=== PATIENT | female | born 1980 | race Caucasian/White ===

== ENCOUNTER → 2016-12-17 | Outpatient (CLI) | payer OTHER | LOC: GMAM 17:19 | PROVIDERS: ATTEND Family Medicine | DX: R06.02 Shortness of breath (principal) ==

== ENCOUNTER 2017-03-10 10:21 | Emergency (ER) | payer OTHER ==
[2017-03-10 10:34] VITALS: BP 96/67; TEMP 98.1; O2SAT 96
[2017-03-10] MEDS ORDERED: predniSONE 20 MG TAB PO ONE (11:31)
[2017-03-10] MEDS ORDERED: PSEUDOEPHEDRINE HCL 30 MG TAB PO ONE (11:32)
--- NOTE | 2017-03-10 11:36 | ED.PDOC ---
History of Present Illness - General Chief Complaint: Respiratory Problem Stated Complaint: sore throat Time Seen by Provider: 03/10/17 10:23 Source: patient Exam Limitations: no limitations - History of Present Illness Initial Comments: The patient is a 37-year-old female presenting to the ER secondary to pharyngitis and congestion. Symptoms have been going on for several days. Questionable low-grade fevers. No nausea or vomiting. No difficulty with breathing. She has had exposure to strep throat. Physical exam shows nares that are red. Clear rhinorrhea. Posterior oropharynx shows mildly enlarged tonsillar tissues with some ulceration on the right. No palatal asymmetry. No evidence of abscess formation. Lungs are clear. Timing/Duration: 24 hours Severity: moderate Improving Factors: nothing Worsening Factors: nothing Associated Symptoms: malaise Allergies/Adverse Reactions: Allergies NO KNOWN ALLERGY Allergy (Verified 03/10/17 10:35) Review of Systems - Review of Systems Constitutional: States: malaise EENTM: States: nose congestion, throat pain Respiratory: States: no symptoms reported Cardiology: States: no symptoms reported Gastrointestinal/Abdominal: States: no symptoms reported Genitourinary: States: no symptoms reported Musculoskeletal: States: no symptoms reported Skin: States: no symptoms reported Neurological: States: no symptoms reported Endocrine: States: no symptoms reported All other Systems: No Change from Baseline Past Medical History (General) - Patient Medical History Hx Seizures: No Hx Asthma: No Hx of COPD: No Hx Cardiac Disorders: No Surgical History: appendectomy, other - Female History Patient is a Female of Child Bearing Age (10 -59 yrs old): Yes Family Medical History - Family History Mother Family History: Unknown Physical Exam - Physical Exam General Appearance: Alert, Comfortable, No apparent distress Eye Exam: bilateral normal Ears, Nose, Throat: nasal congestion, pharyngeal erythema Neck: full range of motion, other - mild shotty lymphadenopathy Respiratory: lungs clear, normal breath sounds, no respiratory distress, no accessory muscle use Cardiovascular/Chest: regular rate, rhythm, no edema Back Exam: normal inspection Extremity: normal range of motion, normal inspection Neurologic: alert, normal mood/affect, oriented x 3 Skin Exam: normal color Comments: Vital Signs - 24 hr 03/10/17 03/10/17 10:30 10:42 Temperature 98.1 F Pulse Rate [ 94 H Right] Respiratory 16 16 Rate Blood Pressure 96/67 [right brachial ] O2 Sat by Pulse 96 Oximetry Progress - Progress Progress: 03/10/17 11:37 the patient is a 37-year-old female that appears to have a viral rhinopharyngitis with herpangina. The patient is given one dose of oral prednisone here. She can alternate Motrin and Tylenol to help reduce symptoms. She is contagious. She can use Chloraseptic spray to help reduce sore throat symptoms. She was also given 1 dose of Sudafed here. She can take Zyrtec-D 1 tablet daily for the next 2 or 3 days to help with symptoms as well. Additionally if she wishes, she can sweet pickle maker [id number] Nasacort or Flonase and use 1 spray in each nostril twice daily for the next for 5 days. She does need to keep well-hydrated. ER warnings were given for any significant worsening. Departure - Departure Clinical Impression: Herpangina, Rhinopharyngitis Disposition: Discharge to Home or Self Care Condition: Fair Departure Forms: ED Discharge - Pt. Copy, Patient Portal Self Enrollment Instructions: DI for Viral Upper Respiratory Infection -- Adult Diet: regular diet Activity: increase activity as tolerated Referrals: Jaydon Santos MD [Primary Care Provider] - 1-2 Weeks Additional Instructions: the patient is a 37-year-old female that appears to have a viral rhinopharyngitis with herpangina. The patient is given one dose of oral prednisone here. She can alternate Motrin and Tylenol to help reduce symptoms. She is contagious. She can use Chloraseptic spray to help reduce sore throat symptoms. She was also given 1 dose of Sudafed here. She can take Zyrtec-D 1 tablet daily for the next 2 or 3 days to help with symptoms as well. Additionally if she wishes, she can sweet pickle maker [id number] Nasacort or Flonase and use 1 spray in each nostril twice daily for the next for 5 days. She does need to keep well-hydrated. ER warnings were given for any significant worsening.
[2017-03-10] MEDS ORDERED: IBUPROFEN 200 MG TAB PO ONE (11:39)
== END 2017-03-10 11:48 | disposition home or self-care (01) ==
LOC: ER 10:21
DX: J00 Acute nasopharyngitis [common cold] (principal); B08.5 Enteroviral vesicular pharyngitis
CPT/HCPCS: 87070; 87651; J7512

== ENCOUNTER → 2017-03-26 | Outpatient (CLI) | payer OTHER | END | disposition home or self-care (01) | LOC: GMAB 14:49 | PROVIDERS: ATTEND Family Medicine | DX: E03.9 Hypothyroidism, unspecified (principal) ==

== ENCOUNTER → 2017-12-31 | Outpatient (CLI) | payer OTHER | LOC: GMAB 15:21 | PROVIDERS: ATTEND Family Medicine | DX: E03.9 Hypothyroidism, unspecified (principal) ==

== ENCOUNTER → 2019-01-01 | Outpatient (CLI) | payer OTHER | LOC: GMAM 17:23 | PROVIDERS: ATTEND Family Medicine | DX: E03.9 Hypothyroidism, unspecified (principal); R10.84 Generalized abdominal pain ==

== ENCOUNTER → 2019-01-13 | Outpatient (CLI) | payer OTHER ==
--- NOTE | 2019-01-13 19:33 | RAD ---
EXAM DESCRIPTION: Barium Swallow: Rad-Fluoroscopy. CLINICAL HISTORY: HIATAL HERNIA K44.9. Previous Romario procedure. Heartburn and belching frequently. COMPARISON: None TECHNIQUE: The patient swallowed barium pill with water. The patient swallowed gas-producing granules, water, and heavy density barium under fluoroscopic visualization. The images were obtained with the patient standing and horizontal. Patient drank medium density barium through a straw in the semi-prone position. 106 fluoroscopic cine loop images. 8 static fluoroscopic images. Total fluoroscopy time was 2.7 minutes. DAP: 16.69 Gy-cm2.. Dose 119.22 mGy. FINDINGS: Patient was able to swallow the barium pill transited throughout entire esophagus with 4 sIps of water. There was delay at the gastroesophageal junction then the pill passed into the stomach with 2 additional sips of water. No significant abnormality in the swallowing phase. No deepa residual penetration. In the standing position, Primary peristaltic curve is unremarkable but there is narrowing above the gastroesophageal junction approximately 25% diameter. On the anterior wall at this level of narrowing, there is a anterior protrusion enlarges to become a diverticulum of the anterior mucosal. With patient swallowing in the right semiprone decubitus position, the diverticulum could not be reproduced. It also cannot be reproduced supine with coughing or Valsalva maneuver. No definite hiatal hernia is noted. No gross mucosal lesions in the esophagus or duodenum and no mass effect. IMPRESSION: 1. Diverticulum on the anterior wall of the distal esophagus associated with narrowing of the esophageal lumen. 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 No definite hiatal hernia. No gastroesophageal reflux.. No reflux from the diverticulum. 2. No contrast leak from the surgical site. Electronically signed by: Nemesio Mchugh MD 01/13/2019 7:29 PM NETWORK ANALYST
== END ==
LOC: RAD 08:00
PROVIDERS: ATTEND Family Medicine
DX: K44.9 Diaphragmatic hernia without obstruction or gangrene (principal); K22.5 Diverticulum of esophagus, acquired

== ENCOUNTER → 2019-11-17 | Outpatient (CLI) | payer OTHER | LOC: GMAM 16:43 | PROVIDERS: ATTEND Family Medicine | DX: E03.9 Hypothyroidism, unspecified (principal) ==

== ENCOUNTER → 2020-03-18 | Outpatient (CLI) | payer OTHER | LOC: LAB.O 08:19 | PROVIDERS: ATTEND Obstetrics & Gynecology | DX: Z00.00 Encounter for general adult medical examination without abnormal findings (principal); E34.9 Endocrine disorder, unspecified; R41.3 Other amnesia; R53.83 Other fatigue; E55.9 Vitamin D deficiency, unspecified; E07.9 Disorder of thyroid, unspecified; E78.5 Hyperlipidemia, unspecified; R73.09 Other abnormal glucose; R79.82 Elevated C-reactive protein (CRP) ==

== ENCOUNTER → 2020-06-06 | Outpatient (CLI) | payer OTHER | LOC: GMAM 17:11 | PROVIDERS: ATTEND Family Medicine | DX: E03.9 Hypothyroidism, unspecified (principal) ==

== ENCOUNTER → 2020-08-03 | Outpatient (CLI) | payer OTHER | LOC: GMAM 17:13 | PROVIDERS: ATTEND Family Medicine | DX: E03.9 Hypothyroidism, unspecified (principal) ==